=== PATIENT | female | born 1950 | race Caucasian/White ===

== ENCOUNTER → 2018-10-04 | Outpatient (CLI) | payer MEDICARE, MEDICAID | END | disposition home or self-care (01) | LOC: PCVCCLINIC 14:13 | PROVIDERS: ATTEND Internal Medicine | DX: R07.9 Chest pain, unspecified (principal); I73.9 Peripheral vascular disease, unspecified; G47.33 Obstructive sleep apnea (adult) (pediatric); E78.5 Hyperlipidemia, unspecified; F20.89 Other schizophrenia; I12.9 Hypertensive chronic kidney disease with stage 1 through stage 4 chronic kidney disease, or unspecified chronic kidney disease; E11.22 Type 2 diabetes mellitus with diabetic chronic kidney disease; N18.4 Chronic kidney disease, stage 4 (severe); Z88.0 Allergy status to penicillin | CPT/HCPCS: 93005; G0463 ==

== ENCOUNTER → 2018-10-24 | Outpatient (CLI) | payer MEDICARE, MEDICAID ==
--- NOTE | 2018-10-24 10:40 | PCVCIMAG ---
EXAM: BILATERAL LOWER EXTREMITY ARTERIAL DUPLEX INDICATION: Peripheral Arterial Disease. Leg pain. FINDINGS: Right Leg: Common femoral profunda femoral arteries are patent. Increased systolic velocity 407 cm/s proximal tetlin superficial femoral artery consistent with 80% stenosis. Popliteal artery is patent. The anterior tibial and peroneal arteries are patent. Posterior tibial artery is patent. Left Leg: Common femoral and profunda femoral arteries are patent. Increased systolic velocity 477 cm/s distal tetlin superficial femoral artery with 90% stenosis. Popliteal artery is patent. Mid/distal posterior tibial artery is occluded. The anterior tibial and peroneal arteries are patent. IMPRESSION: 80% stenosis proximal tetlin right superficial femoral artery. 90% stenosis distal tetlin left superficial femoral artery. Occlusion mid/distal left posterior tibial artery. LOC:[id number]
== END | disposition home or self-care (01) ==
LOC: PCVCIMAG 08:51
PROVIDERS: ATTEND Nuclear Medicine Nuclear Cardiology
DX: I73.9 Peripheral vascular disease, unspecified (principal); E78.00 Pure hypercholesterolemia, unspecified; N18.9 Chronic kidney disease, unspecified; F20.9 Schizophrenia, unspecified; G47.33 Obstructive sleep apnea (adult) (pediatric); E78.5 Hyperlipidemia, unspecified
CPT/HCPCS: 93925; G0463

== ENCOUNTER → 2018-10-28 | Outpatient (CLI) | payer MEDICARE, MEDICAID ==
[~2018-10-28] MED LIST: ASPIRIN 325 MG TABLET ONE; CLOPIDOGREL BISULFATE 75 MG TABLET ONE; DIAZEPAM 10 MG TABLET. ONE; EPTIFIBATIDE BOLUS 2,000 MCG/ML 10ML VIAL. IV ONE; HEPARIN for ARTERIAL LINE 1,500 ML ONE; HEPARIN for SUB-Q USE 5,000 UNIT/ML VIAL. SQ ONE; IODIXANOL 270 MG/ML 100 ML VIAL. ONE; IOHEXOL 350 MG/ML 100 ML VIAL. ONE; IOHEXOL 350 MG/ML 50 ML VIAL. ONE; IV NORMAL SALINE 1000ML BAG 1,000 ML ONE; LIDOCAINE 1%/EPI 1:100,000 20 ML VIAL. ONE; MIDAZOLAM HCL/PF 2 MG/2 ML VIAL. ONE; VANCOMYCIN 1GM IVPB FOR OMNI 0 ML ONE; fentaNYL PF VIAL 100 MCG/2 ML VIAL ONE; hydrALAZINE 20 MG/ML VIAL. ONE
--- NOTE | 2018-10-28 12:11 | PCVCINTER ---
EXAM: 1. AORTOGRAM AND BILATERAL LOWER EXTREMITY RUNOFF ANGIOGRAM 2. BILATERAL RENAL ANGIOGRAPHY INDICATION: Peripheral arterial disease. Coronary artery disease. Leg fatigue and pain. Hypertension. Renal atherosclerosis. No prior catheter based angiographic study is available. A full diagnostic angiogram study is performed today and the decision to intervene is based on this diagnostic study. PROCEDURE: Procedure and risks of angiography intervention is appropriate including limb loss stroke and were discussed with the patient's family and consent obtained. The patient's right groin was prepped in the normal sterile fashion. IV conscious sedation was used throughout procedure with appropriate monitoring from 10:15 AM through 11:15 AM. Ultrasound was used to interrogate the right groin and showed the right common femoral artery to be patent. A permanent spot film was obtained. Under ultrasound guidance access into the right common femoral artery was obtained and a 5 [place] sheath was placed. Through this a 5 [place] flush catheter was placed into the abdominal aorta at the level of the renal arteries and AP aortogram was performed. Catheter was positioned at the aortic bifurcation and both oblique views of the pelvis were obtained. Catheter was positioned into the right external iliac artery and right leg runoff angiography was performed. Catheter was exchanged for a visceral catheter was placed into the right renal arteries and right renal angiograms obtained. Catheter was placed into the the left renal arteries and left renal angiograms were obtained. Catheter was advanced to the level of the left external iliac artery and left leg runoff angiography was obtained. Catheters and wires removed. Sheath was removed and hemostasis obtained using the FISH device. No immediate complications. FINDINGS: Aortogram: There is one right and one left renal artery. Minimal plaque infrarenal abdominal aorta without significant stenosis. Pelvis: Moderate plaque mid right common iliac artery causing only minimal stenosis. The left common iliac arteries patent. Both internal iliac arteries are patent. The right and left external iliac arteries are patent. The right and left common femoral and profunda femoral arteries are patent. Right renal artery: Minimal plaque proximal vessel does not cause significant stenosis. Diffuse narrowing of intrarenal vessels consistent with chronic renal disease. Left renal artery: Minimal plaque proximal vessel does not cause significant stenosis. Diffuse narrowing of intrarenal vessels consistent with chronic renal disease. Right leg: Moderate scattered plaque throughout the superficial femoral artery with areas of 40-50% stenosis not felt be critically flow-limiting. The popliteal artery is patent. The anterior tibial artery is a dominant runoff vessel shows good patency throughout its length. Segmental occlusion proximal dorsalis pedis. The peroneal artery shows 60% stenosis in its upper portion but is otherwise patent. The posterior tibial arteries occluded throughout. Small plantar arteries are visualized. Left leg: Diffuse moderate to moderately severe narrowing throughout the [place] superficial femoral artery. Popliteal artery is patent. Mild stenosis proximal anterior tibial artery which otherwise widely patent into a normal sized dorsalis pedis. Peroneal artery is patent throughout. Moderate stenosis upper posterior tibial artery with the vessel then being small in size throughout. Occlusion distal most posterior tibial artery proximal to the plantar arteries which are small and refill via the metatarsal arch. IMPRESSION: Moderate diffuse disease throughout the superficial femoral arteries bilaterally left greater than right. Given the patient's relatively mild leg symptoms no intervention was felt warranted at this time given the diffuse nature of the disease. Bilateral infrapopliteal arterial occlusive disease as described. I reviewed the findings with the patient's sister who is her caregiver. I recommended a regimented walking program. Patient will follow-up with one of my cardiology partners given her coronary disease seen on catheterization today. LOC:[id number]
--- NOTE | 2018-10-28 14:15 | PCVCINTER ---
APPROVED REPORT Study performed: 10/28/2018 11:06:52 Patient Details Patient Status: Out-Patient Room #: 2 The patient is a 68 year-old Female Event Personnel Iglesia Loredo M.D., , River Henry RT(R), Jeronimo Onelia RT(R)(), Jonel Eckert RN Indication Dyspnea, Chest pain Risk Factors Arterial HypertensionDysplipidemia (Type: 1), Peripheral Vascular Disease, Chronic Lung DiseaseHypercholesterolemia, Renal Failure, Diabetes (Control: Insulin)Last Creatanine 1.7Tobacco History (Never) Previous Procedures/Diagnoses Renal failure->No dialysis, PVD, Hypertension, Diabetes, Sleep apnea Procedure Narrative The right coronary system was accessed and visualized with a JR4 catheter. The left coronary system was accessed and visualized with a JL4 catheter. Left ventricular/Aortic Valve gradient assessed via catheter pullback. Hemostasis was obtained with manual pressure following sheath removal without any complications. The patient tolerated the procedure well and there were no complications associated with the procedure. There was no hematoma. Coronary Angiography The patient's coronary anatomy is right dominant. Diagnostic Cath Left MainThis is a patent vessel, with no flow-limiting lesions. LADThis is a moderate size caliber vessel, traversing the anterior wall and wrapping around the apex. There is mild to moderate diffuse disease in the proximal/mid segment, 30-40%. Diagonal 1This is a moderate size caliber vessel, with mild disease at the ostium, 30%. CircumflexThis is a patent vessel, with no flow-limiting lesions. TL6Bixl is a moderate size caliber vessel, with mild disease at the proximal segment, 30%. Right CoronaryThis is a dominant vessel, with mild disease in the mid segment, 20%. R PDAThis is a patent vessel, with no flow-limiting lesions. RPLVThis is a patent vessel, with no flow-limiting lesions. Left Ventriculography Left Ventriculography was not performed. An LVEDP was measured and there is no gradient across the outflow tract. Hemodynamics The aortic pressure is 122/37 mmHg with a mean of 70 mmHg. The left ventricular pressure is 116/6 mmHg with a mean of 14 mmHg. Conclusion 1. Mild to moderate coronary artery disease. 2. Recommend aggressive risk factor management.
== END | disposition home or self-care (01) ==
LOC: PCVCINTER 08:49
PROVIDERS: ATTEND Internal Medicine
DX: I70.1 Atherosclerosis of renal artery (principal); I25.10 Atherosclerotic heart disease of native coronary artery without angina pectoris; I70.0 Atherosclerosis of aorta; I70.293 Other atherosclerosis of native arteries of extremities, bilateral legs; I12.9 Hypertensive chronic kidney disease with stage 1 through stage 4 chronic kidney disease, or unspecified chronic kidney disease; E11.22 Type 2 diabetes mellitus with diabetic chronic kidney disease; N18.4 Chronic kidney disease, stage 4 (severe); Z88.0 Allergy status to penicillin; E78.00 Pure hypercholesterolemia, unspecified; G47.33 Obstructive sleep apnea (adult) (pediatric); Z90.710 Acquired absence of both cervix and uterus; Z98.890 Other specified postprocedural states; Z79.899 Other long term (current) drug therapy; F20.9 Schizophrenia, unspecified; Z79.84 Long term (current) use of oral hypoglycemic drugs
CPT/HCPCS: 36246; 36252; 75716; 76937; 93458; 99152; 99153; C1751; C1760; C1769; C1894; J1644; J2250; J3010; J3490; J7030; Q9967; J0360; J1327; J3370